=== PATIENT | female | born 1975 | race Caucasian/White ===

== ENCOUNTER 2019-12-28 19:10 | Emergency (ER) | payer SELFPAY ==
--- NOTE | 2019-12-28 19:57 | ER Document Report ---
ED Medical Screen (RME) - General Chief Complaint: Chest Pain > 30 Stated Complaint: LEFT ARM PAIN Time Seen by Provider: 12/28/19 19:51 Primary Care Provider: CARLINE DELEON MD [Primary Care Provider] - Follow up as needed Information source: Patient Notes: 44-year-old female presented to ED for complaint of pain that starts in her left neck goes to her jaw and then to her left shoulder and then down the left arm. She states at first she was having chest pain was a but lately it is just the jaws the neck the shoulder and the arm feels heavy and sleepy like instead. She states for the last 2 days the pain is been much worse. She does have a history of coronary artery disease high blood pressure cholesterol. Her medical history has been updated. She has agreed with everything that is on the medical history today. She states she does smoke 1/2 pack a day does not drink or do any drugs. She states she has a level 4 pain right now when it gets bad is up to a 5. She states is in her left jaw her left neck and then it goes across to her shoulder then her arm is very sore and tired. Currently taking I have greeted and performed a rapid initial assessment of this patient. A comprehensive ED assessment and evaluation of the patient, analysis of test results and completion of medical decision making process will be conducted by an additional ED providers. TRAVEL OUTSIDE OF THE [place] IN LAST 30 DAYS: No - Related Data Allergies/Adverse Reactions: prochlorperazine edisylate [From Compazine] Allergy (Intermediate, Verified 01/25/14 15:26) crawling sensation Past Medical History - Past Medical History Cardiac Medical History: Reports: Hx Hypercholesterolemia, Hx Hypertension Pulmonary Medical History: Reports: Hx Asthma, Hx Bronchitis, Hx Pneumonia Neurological Medical History: Reports: Hx Migraine Musculoskeltal Medical History: Reports Hx Musculoskeletal Deformity, Reports Hx Musculoskeletal Trauma Past Surgical History: Reports: Hx Abdominal Surgery, Hx Appendectomy, Hx Nose Surgery, Hx Oral Surgery, Hx Thyroid Surgery - Thyroid cyst removed, Hx Tubal Ligation - Immunizations Immunizations up to date: Yes Hx Diphtheria, Pertussis, Tetanus Vaccination: Yes Physical Exam - Vital signs Vitals: Temp Pulse Resp BP Pulse Ox 98.9 F 74 20 139/81 H 99 12/28/19 19:25 12/28/19 19:25 12/28/19 19:25 12/28/19 19:25 12/28/19 19:25 Course - Vital Signs Vital signs: Temp Pulse Resp BP Pulse Ox 98.9 F 74 20 139/81 H 99 12/28/19 19:25 12/28/19 19:25 12/28/19 19:25 12/28/19 19:25 12/28/19 19:25 Doctor's Discharge - Discharge Referrals: CARLINE DELEON MD [Primary Care Provider] - Follow up as needed
[2019-12-28 20:40] LABS: ABSOLUTE BASOPHILS # (AUTO) 0.1 10^3/uL (0.0-0.2); ABSOLUTE EOSINOPHILS # (AUTO) 0.3 10^3/uL (0.0-0.6); ABSOLUTE LYMPHOCYTES (AUTO) 2.8 10^3/uL (0.5-4.7); ABSOLUTE MONOCYTES (AUTO) 0.9 10^3/uL (0.1-1.4); BASOPHILS % (AUTO) 0.8 % (0-2); EOSINOPHILS % (AUTO) 3.6 % (0-6); HEMATOCRIT 45.8 % (36.0-47.0); HEMOGLOBIN 15.6 g/dL (12.0-15.5); LYMPHOCYTES % (AUTO) 30.8 % (13-45); MEAN CORPUSCULAR HEMOGLOBIN 29.6 pg (27.0-33.4); MEAN CORPUSCULAR VOLUME 87 fl (80-97); MONOCYTES % (AUTO) 9.6 % (3-13); PLATELET COUNT 295 10^3/uL (150-450); RED BLOOD COUNT 5.26 10^6/uL (3.72-5.28); RED CELL DISTRIBUTION WIDTH 13.7 % (11.5-14.0); SEGMENTED NEUTROPHILS % (AUTO) 55.2 % (42-78); TOTAL CELLS COUNTED % (AUTO) 100 %
--- NOTE | 2019-12-28 20:42 | RADIOLOGY REPORT (SQ) ---
XR CHEST 2 VIEWS HISTORY: Chest pain radiate to jaw and arm. COMPARISON: 01/25/2014 FINDINGS: The heart size is within normal limits. There is no pulmonary vascular congestion. No consolidation, pleural effusion, or pneumothorax is seen. No acute bony findings are seen. IMPRESSION: No evidence of acute cardiopulmonary disease.
[2019-12-28 20:48] LABS: ALBUMIN 3.9 g/dL (3.5-5.0); ALKALINE PHOSPHATASE 127 U/L (38-126); ANION GAP 7 (5-19); ASPARTATE AMINO TRANSFERASE 35 U/L (14-36); BILIRUBIN,DIRECT 0.3 mg/dL (0.0-0.4); BILIRUBIN,TOTAL 0.4 mg/dL (0.2-1.3); BLOOD UREA NITROGEN 12 mg/dL (7-20); CALCIUM 9.3 mg/dL (8.4-10.2); CARBON DIOXIDE 26 mmol/L (22-30); CHLORIDE 103 mmol/L (98-107); GLUCOSE 182 mg/dL (75-110); POTASSIUM 4.7 mmol/L (3.6-5.0); TOTAL PROTEIN 6.7 g/dL (6.3-8.2)
[2019-12-28 20:53] LABS: INTERNATIONAL RATION (INR) 0.92; PROTHROMBIN TIME 12.6 SEC (11.4-15.4)
[2019-12-28 20:54] LABS: PARTIAL THROMBOPLASTIN TIME 25.8 SEC (23.5-35.8)
[2019-12-29] MEDS ORDERED: TRAMADOL HCL 50 MG TABLET PO ONE (00:23)
--- NOTE | 2019-12-29 00:23 | ER Document Report ---
ED Extremity Problem, Upper - General Chief Complaint: Chest Pain > 30 Stated Complaint: LEFT ARM PAIN Time Seen by Provider: 12/28/19 19:51 Primary Care Provider: LEONARD HERNANDEZ MD [ACTIVE STAFF] - Follow up in 3-5 days SHARON BALES MD [HONORARY] - Follow up in 3-5 days Notes: Patient is a 44-year-old female who presents emergency department with a chief complaint of left neck pain and left arm pain. That has started about 2 to 3 months ago. Patient states that tonight she felt the pain gets worse. States t hat she feels a pinching sensation in her left neck that radiates down. States this morning she ended up having some chest pain. Denies any numbness or tingling. Patient has a history of hypertension, hyperlipidemia, and allergies. Patient states that she has been out of some of her medications. TRAVEL OUTSIDE OF THE [place] IN LAST 30 DAYS: No - Related Data Allergies/Adverse Reactions: prochlorperazine edisylate [From Compazine] Allergy (Intermediate, Verified 01/25/14 15:26) crawling sensation Past Medical History - General Information source: Patient - Social History Smoking Status: Current Every Day Smoker Frequency of alcohol use: None Drug Abuse: None Family History: Other - kidney stones - Past Medical History Cardiac Medical History: Reports: Hx Hypercholesterolemia, Hx Hypertension Pulmonary Medical History: Reports: Hx Asthma, Hx Bronchitis, Hx Pneumonia Neurological Medical History: Reports: Hx Migraine Musculoskeletal Medical History: Reports Hx Musculoskeletal Deformity, Reports Hx Musculoskeletal Trauma Past Surgical History: Reports: Hx Abdominal Surgery, Hx Appendectomy, Hx Nose Surgery, Hx Oral Surgery, Hx Thyroid Surgery - Thyroid cyst removed, Hx Tubal Ligation - Immunizations Immunizations up to date: Yes Hx Diphtheria, Pertussis, Tetanus Vaccination: Yes Review of Systems - Review of Systems Notes: REVIEW OF SYSTEMS: CONSTITUTIONAL : Denies recent illness. Denies recent unintentional weight loss. Denies fever, chills, or sweats. EENT: Denies eye, ear, throat, or mouth pain, discharge, or symptoms. Denies nasal or sinus congestion. CARDIOVASCULAR: See HPI. RESPIRATORY: Denies shortness of breath, cough, congestion, difficulty breathing, or wheezing. GASTROINTESTINAL: Denies nausea, vomiting, and diarrhea. Denies abdominal pain. Denies constipation. GENITOURINARY: Denies difficulty urinating, burning, blood in urine, urgency or frequency. MUSCULOSKELETAL: See HPI. SKIN: Denies rash, itchiness, or lesions HEMATOLOGIC : Denies easy bruising or bleeding. LYMPHATIC: Denies swollen, painful, enlarged glands. NEUROLOGICAL: Denies no numbness or tingling denies weakness. Denies headache. Denies altered mental status. Denies alteration in speech. PSYCHIATRIC: Denies stress, anxiety, alteration in sleep patterns, or depression. All other systems reviewed and negative. Physical Exam - Vital signs Vitals: Temp Pulse Resp BP Pulse Ox 98.9 F 74 20 139/81 H 99 12/28/19 19:25 12/28/19 19:25 12/28/19 19:25 12/28/19 19:12/28/19 19:25 - Notes Notes: PHYSICAL EXAMINATION: GENERAL: Appears well, healthy, well-nourished, no acute distress. HEAD: Normocephalic, atraumatic. EYES: PERRL, conjunctiva normal, all extraocular movements intact, sclera nonicteric ENT: Moist mucous membranes. NECK: Supple, no noticeable swelling, redness, rash. Normal range of motion. LUNGS: Equal breath sounds bilaterally and clear to auscultation. No wheezes rales or rhonchi. CARDIOVASCULAR: S1-S2, regular rate, regular rhythm. Radial pulses 2+, normal. ABDOMEN: Normoactive bowel sounds. Soft, nontender, no guarding, no rebound tenderness, and no masses palpated. EXTREMITIES: Normal strength and range of motion, no pitting or edema. No cyanosis. Tenderness noted to the trapezius muscle and shoulder. Tenderness noted to left neck upon palpation. NEUROLOGICAL: Moves all extremities upon command. Strength 5/5 in all extremities. PSYCH: Normal mood, normal affect. SKIN: Warm, dry. No rash, lesions, ulcerations noted. Normal skin turgor. Course - Re-evaluation Re-evalutation: 12/29/19 00:24 Hematology is unremarkable, other than a slightly elevated hemoglobin. Coags are unremarkable. Chemistries and liver function tests are also unremarkable. Troponin is negative. Chest x-ray is also negative. Patient will follow-up with her primary care provider. We will give the patient her medications that she normally takes, but is out of. She is to follow-up with her shipping and receiving material handler also. We will also give her referral for Dr. Hernandez, our shipping and receiving material handler. She is in agreement with this plan. Follow-up precautions were given. Verbal discharge instructions were given to the patient. They verbalized understanding. They are stable for discharge. - Vital Signs Vital signs: Temp Pulse Resp BP Pulse Ox 98.9 F 74 14 129/110 H 100 12/28/19 19:25 12/28/19 19:25 12/29/19 00:01 12/29/19 00:01 12/29/19 00:01 - Laboratory Result Diagrams: 12/28/19 20:19 12/28/19 20:19 Laboratory results interpreted by me: 12/28/19 12/28/19 20:19 20:19 Hgb 15.6 H Sodium 136.1 L Glucose 182 H ALT 55 H Alkaline Phosphatase 127 H Discharge - Discharge Clinical Impression: Neck pain, Left arm pain Chest pain Qualifiers: Chest pain type: unspecified Qualified Code(s): R07.9 - Chest pain, unspecified Condition: Stable Disposition: HOME, SELF-CARE Additional Instructions: You were seen today in emergency department for neck pain, arm pain, and chest pain. Your chest x-ray, labs, and work-up are very reassuring. Your pain is most likely due to the pain in your neck causing you to have symptoms. You are going to go home with a small dose of pain medication. Please only take these if you absolutely need them. Please follow-up with your primary care provider. You are also getting a prescription for the medications that you are out of. Take them as prescribed. Please follow-up with cardiology within this week. Below is a list of 1 of the cardiologists here in the area. Prescriptions: Hydrochlorothiazide [Hydrodiuril 25 mg Tablet] 25 mg PO QAM #30 tablet Potassium Chloride [Klor-Con 10 Meq Tablet ER] 10 meq PO DAILY #30 tablet.sa Atorvastatin Calcium [Lipitor 40 mg Tablet] 40 mg PO QHS #30 tablet Montelukast Sodium [Singulair 10 mg Tablet] 10 mg PO QHS #30 tablet Tramadol HCl [Ultram 50 mg Tablet] 50 mg PO ASDIR PRN #10 tablet PRN Reason: Forms: Return to Work Referrals: SHARON BALES MD [HONORARY] - Follow up in 3-5 days LEONARD HERNANDEZ MD [ACTIVE STAFF] - Follow up in 3-5 days
[2019-12-29 00:35] VITALS: BP 129/110
--- NOTE | 2019-12-29 09:17 | EKG REPORT ---
SEVERITY:- BORDERLINE ECG - SINUS RHYTHM BORDERLINE INFERIOR Q WAVES : Confirmed by: Roverto Cazares 29-Dec-2019 09:17:10
== END 2019-12-29 00:35 | disposition home or self-care (01) ==
LOC: ER 19:10
DX: R07.9 Chest pain, unspecified (principal); M79.602 Pain in left arm; M54.2 Cervicalgia; I10 Essential (primary) hypertension; F17.200 Nicotine dependence, unspecified, uncomplicated; Z88.8 Allergy status to other drugs, medicaments and biological substances
CPT/HCPCS: 36415; 71046; 80053; 83735; 84484; 85025; 85610; 85730; 93005; 93010; 99285